=== PATIENT | female | born 1985 | race Caucasian/White ===

== ENCOUNTER 2016-08-02 10:13 | Day surgery (SDC) | payer OTHER ==
[~2016-08-02] VITALS: Ht 172.7 cm; Wt 94.5 kg
[2016-08-02] VITALS (8 sets, daily range): BP systolic 114–137; BP diastolic 67–80; PULSE 58–77; RESP 14–18; O2SAT 95–98
[2016-08-02] MEDS: Lactated Ringer's 1,000 ML IV SCH ×2 (06:19→12:35)
--- NOTE | 2016-08-02 08:18 | PCM.HPANE ---
Patient Data Surgeon Admitting Provider: Attending Provider:Bjorn Bella MD Primary Care Physician:[facility] Other Provider:Felicita Aminingham Anesthesia Reason for Visit Left Distal Radius Fracture Ht/WT & BMI Height (Feet): 5 Height (Inches): 8 Weight (Kilograms): 94.53 Body Mass Index 31.00 Allergies Coded Allergies: No Known Allergies (Verified Allergy, Unknown, 08/01/16) Past Anesthesia History Anesthesia History: Denies:: Abnormal Airway, Anesthesia Reactions, Difficult Intubation, Fam Anesthesia Reaction, Malignant Hyperthermia Diabetes History Hx Diabetes?: No MRSA MRSA: No Medications Hypertension Medication: No Home Meds Incl Beta Hollie: No Reported Medications Hydrocodone-Acetaminophen 5-325 mg 1 Each Tablet1 Tablet PO Q8H PRN For Pain Ref 0 08/01/16 Aluminum Chloride (Drysol)35 Ml Ridcbpqs50 Ml TP HS 08/01/16 Clindamycin Phosphate (Cleocin T)60 Gm Gel..gram.60 Gm TP BID 08/01/16 Buspirone 7.5 Mg Tablet7.5 Mg PO HS Ref 0 MAY TAKE ONE DOSE DURING DAY PRN 08/01/16 Acyclovir 800 Mg Nio803 Mg PO 5XD PRN PRN Ref 0 08/01/16 History History of ENT Problems?: Yes HEENT History: Positive for:: Sinus Problem (HX NASOPHARYNGITIS) Hx of Heart Problems?: Yes Cardiovascular History: Denies:: Congestive Heart Failure Heart Murmur (HX PRE SYNCOPE ECHO 10/2015 EF 55-60%) Hypertension Irregular Heartbeat (C/OF INTERMITTANT PALPITATIONS) Valvular Heart Disease Hx of Respiratory Problem?: No Respiratory History: Denies:: Use of C-PAP Machine Hx Neurologic Problems?: Yes Neurological History: Positive for:: Dizziness (PRE-SYNCOPE 10/2015) Hx of GI Problems?: No Hx of Problems?: No Female Hx: Denies:: Currently (HX TUBAL PG 2007) Pelvic Inflammatory (HX HSV, BARTHOLIN'S CYST ABCESS) Skin History: Positive for:: History Skin Disorders? (ACNE) Denies:: Pressure Ulcers Hx Musculoskeletal Problems?: Yes Musculoskeletal History: Positive for:: Musculoskeletal Trauma (FX LT DISTAL RADIUS=CURRENT PROBLEM) Hx of Psycho/Social Problems?: Yes Psycho Social History: Positive for:: Anxiety Hx Surgeries?: Yes (?TUBAL PG 2007) Hx Any Other Health Problems?: Yes Other History: Denies:: Cancer Endocrine Disease Hospitalization Thyroid Disease History Blood Transfusions: Denies:: Blood Transfusions Hx Diabetes: No Hx Alcohol Use: NoHx Substance Use: No Smoking Status: Never Smoker Have You Smoked inLast 12 mo: No Stop/Bang Treated for Sleep Apnea?: No Do You Have a CPAP Machine?: No S-Snoring: Do You Snore Loudly: No T-Tired: feel tired, fatigued: No O-Obsered: Observed not breath: No P-Blood Pressure: treated: No B- Body Mass Index > 35 kg/m2: No A- Age over 50: No N- Neck Large Circumference: No G- Gender Male: No KATHERINE Total Score: 0 KATHERINE Risk Assessment: Low Risk, <3 Yes Risk Assessment Category Category 1A: Patient has history of documented sleep apnea, and HAS NOT received any narcotic, sedative or anesthesia administration during this stay. Category 1B: Patient has history of documented sleep apnea, and HAS received any narcotic , sedative or anesthesia administration during this stay Category 2: Patient has SUSPECTED Obstructive Sleep Apnea, and HAS received any narcotic , sedative or anesthesia administration during this stay. Category 3: Patient has SUSPECTED Obstructive Sleep Apnea and HAS NOT received narcotic, sedative or anesthesia administration during this stay. Category 4: Outpatient in Procedural Areas with known sleep apnea or who screen positive for High Risk via the STOP/BANG questionnaire. Exam Exam General Appearance: Alert, Oriented X3, Cooperative, No Acute Distress HEENT/AIRWAY: MP 2 Lungs: Clear to Auscultation, Normal Air Movement Heart: Exam Unremarkable, Regular Rate/Rhythm, No Murmurs/Rubs/Gallops Meds/Labs/Diagnostics Admission Meds Current Medications Lactated Ringer's (Lr) 1,000 ml @ 120 mls/hr Q8H20M IV Last administered on t 06:19; Start 08/02/16 at 05:00; Stop 08/02/16 at 13:19 Plan Impression Patient chart reviewed, patient interviewed and anesthestic plan with risks, benefits, and alternatives discussed, and informed consent obtained. ASA Physical Status: ASA1 Normal Healthy Anesthetic Plan: GA Bene/Risks/Altern/Consents: Yes HP Complete Prior to Induction: Yes Kwabena Pina MD Aug 02, 2016 08:18
[~2016-08-02 10:13] MED LIST: ALUM35SO TP; BUSP7.5T5 PO; CLIN60GE TP; CeFAZolin 2 Gm/50 mL D5W IV Premix IV ONE; HYDR-4003 PO; ZOV800 PO
[2016-08-02] MEDS ORDERED: CeFAZolin 2 Gm/50 mL D5W Duplex Bag IV ONE (12:03)
[2016-08-02] MEDS ORDERED: Bupivacaine-MPF 0.5% 30 mL Inj INFILTRATE ONE (12:19)
[2016-08-02] MEDS ORDERED: Ondansetron 2 mg/mL 2 mL Inj IVPUSH PRN (12:50)
[2016-08-02] MEDS ORDERED: Lactated Ringer's 1,000 ML IV SCH (12:50)
[2016-08-02] MEDS ORDERED: Dexamethasone 4 mg/mL Inj IVPUSH PRN (12:50)
[2016-08-02] MEDS ORDERED: EPHEDrine Sulfate 50 mg/mL Inj IVPUSH PRN (12:50)
[2016-08-02] MEDS ORDERED: HYDROmorphone 1 mg/mL Inj IVPUSH PRN (12:50)
[2016-08-02] MEDS ORDERED: fentaNYL-PF 50 mCg/mL 2 mL Inj IVPUSH PRN (12:50)
[2016-08-02] MEDS ORDERED: Phenylephrine 10,000 mCg/mL Inj IVPUSH PRN (12:50)
[2016-08-02] MEDS ORDERED: MetoCLOpramide 5 mg/mL 2 mL Inj IVPUSH PRN (12:50)
[2016-08-02] MEDS ORDERED: Lactated Ringer's 500 ML IV PRN (12:50)
[2016-08-02] MEDS ORDERED: HYDROcodone-APAP 5-325 mg Tablet PO PRN (13:35)
[2016-08-02] MEDS ORDERED: oxyCODONE-Acetamin 5-325 mg Tablet PO PRN (13:35)
[2016-08-02] MEDS ORDERED: HYDROcodone-APAP 7.5-325 mg Tablet PO PRN (13:35)
--- NOTE | 2016-08-02 13:53 | PCM.ORTHOB ---
Immediate Operative Note Date of Service: Aug 02, 2016 Pre Operative Diagnosis Left distal radius fracture Post Operative Diagnosis Same Procedure Left distal radius fracture open reduction and internal fixation Surgeon Surgeon: Bjorn Bella MD Assistants: Delio Bhat PA-C Findings Left distal radius fracture, displaced, comminuted with three-part intra- articular extension satisfactorily reduced and stabilized with a Synthes 2.4 mm variable angle column small left C6 hole distal 3 hole proximal delta plate with 5 x 2.4 mm locking screws distal, 1 x 2.4 mm nonlocking distal cortical screw and 3 proximal 2.7 mm bicortical screws. Mini C-arm intraoperative fluoroscopic views confirmed satisfactory reduction and fixation without any intra-articular or dorsal cortical penetration from our placed hardware. Grafts, Implants: Implants-See Implant Record Complications There were no periprocedural complications identified. Condition Stable Anesthetic Administered: GA Drains: None Catheters: None Output, Estimated Blood Loss: 3 Blood Admin during surgery: No Surgical Cast or Splint: Short Arm Splint Additional Information Tourniquet time 57 minutes Surgical Specimen Removed: No Surgical Specimen sent to Path: No Post Operative Plan The patient will be discharged from daycare surgery when protocol is met. The patient will avoid any weightbearing or strenuous left upper extremity activities for the next 6 weeks postop. Patient will return to the orthopedic office on or after postoperative day #12 for splint removal, suture removal, x- rays of her left wrist and placement into a removable wrist cock-up splint to initiate wrist and hand range of motion exercises. Bjorn Bella MD Aug 02, 2016 13:53
--- NOTE | 2016-08-02 14:00 | PCM.ORTHOP ---
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 She sustained a closed, neurovascularly intact, displaced, comminuted intra-articular left distal radius fracture for which she presents for open reduction and internal fixation today. Findings Left distal radius fracture, displaced, comminuted with three-part intra- articular extension satisfactorily reduced and stabilized with a Synthes 2.4 mm variable angle column small left C6 hole distal 3 hole proximal delta plate with 5 x 2.4 mm locking screws distal, 1 x 2.4 mm nonlocking distal cortical screw and 3 proximal 2.7 mm bicortical screws. Mini C-arm intraoperative fluoroscopic views confirmed satisfactory reduction and fixation without any intra-articular or dorsal cortical penetration from our placed hardware. Details of Procedure The patient was brought to the OR and given a general anesthetic. She is placed in the supine position with her left upper extremity abducted onto a hand table. The tourniquet was placed high about the left arm. The left upper extremity received a trauma scrub and then was prepped and draped in usual sterile fashion. A longitudinal volar radial incision was placed over the distal forearm and wrist and curved gently at the volar radial wrist flexor crease overlying the flexor carpi radialis tendon. We deepened through subcutaneous tissues. The radial nerve and artery were gently retracted radially. The FCR, flexor tendons and median nerve were retracted ulnarward. We deepened our exposure where the flexor pollicis longus and pronator quadratus were elevated in a subperiosteal fashion off the distal volar radius from the metaphyseal diaphyseal junction to the radial styloid. We extended our subperiosteal dissection transversely across the distal radius at the watershed line remaining extra-articular. We cleared the fracture hematoma, soft tissues and periosteum from the fracture site and reduced the comminuted, three-part, intra-articular distal radius fracture. We provisionally applied a Synthes 2.4 mm VA small distal radial locking plate across the fracture site and confirmed placement with mini C-arm fluoroscopy. We then secured the plate to the distal radius with 1 fully threaded 2.4 mm cortical screw distally and 5 x 2.4 mm distal locking screws. The plate was secured proximally with 3 x 2.7 mm bicortical screws. Intraoperative fluoroscopic views confirm satisfactory reduction and fixation of the fracture without any intra-articular or dorsal cortical penetration from our placed hardware. The wound was thoroughly irrigated and closed. We used 3-0 Vicryl for repair of the pronator quadratus and flexor pollicis longus over the volar radial plate. 3-0 Vicryl was used in an interrupted subcutaneous closure and a 3-0 Prolene was used in a subcuticular fashion to close the skin. Steri-Strips were used to augment the skin closure. 20 mL of 0.5% Marcaine was instilled into the wound at the end of the case. The wound was dressed with Xeroform and fluff gauze dressings. Patient was placed into a volar short arm splint. Tourniquet was deflated. The patient was taken back to PACU in stable and satisfactory condition. There were no complications. Patient tolerated the procedure well. Grafts, Implants: Implants-See Implant Record Complications There were no periprocedural complications identified. Condition Stable Anesthetic Administered: GA Drains: None Catheters: None Output, Estimated Blood Loss: 3 Blood Admin during surgery: No Surgical Cast or Splint: Short Arm Splint Addtional Information Tourniquet time 57 minutes Surgical Specimen Removed: No Specimen sent to Pathology: No Post Operative Plan The patient will be discharged from daycare surgery when protocol is met. The patient will avoid any weightbearing or strenuous left upper extremity activities for the next 6 weeks postop. Patient will return to the orthopedic office on or after postoperative day #12 for splint removal, suture removal, x- rays of her left wrist and placement into a removable wrist cock-up splint to initiate wrist and hand range of motion exercises. copies to: [facility]; Bjorn Bella MD, Michael G.E MD Aug 02, 2016 14:00
--- NOTE | 2016-08-02 15:01 | PCM.ANEP2 ---
Post Anesthesia Evaluation ASA/CMS Post Anesthesia VS in Patient's Normal Range?: Yes Resp Stable; Airway Patent?: Yes CV Function & Hydration Stable: Yes Mental Status Recovered?: Yes Pain control Satisfactory?: Yes N/V Control Satisfactory?: Yes Kwabena Pina MD Aug 02, 2016 15:01
--- NOTE | 2016-08-02 15:01 | PCM.ANEP1 ---
Post Anesthesia Phase 1 PACU Phase 1 Assessment Date of Service: Aug 02, 2016 Vital Signs Vital Signs Date Time Temp Pulse Resp B/P Pulse Ox O2 Delivery O2 Flow Rate FiO2 08/02/16 14:10 36.4 60 16 126/70 98 Room Air 08/02/16 14:05 61 16 125/77 98 Room Air 08/02/16 14:00 36.4 59 14 124/80 97 Room Air 08/02/16 13:50 58 15 119/76 95 Room Air 08/02/16 13:45 62 14 119/78 96 Room Air 08/02/16 13:40 77 17 132/74 95 Room Air 08/02/16 13:35 36.6 77 18 137/69 95 Room Air 08/02/16 10:39 36.5 64 16 114/67 97 Room Air Anesthetic Administered: GA Level of Alertness: Sleepy, easy to arouse AYALA's with Equal Strength: Yes Pain: No Nausea or Vomiting: No Oxygen Delivery: Simple Mask Lungs: Clear to Auscultation, Normal Air Movement Dermatome Level: Full Sensation Kwabena Pina MD Aug 02, 2016 15:00
--- NOTE | 2016-08-02 15:05 | DRSVH ---
PROCEDURE: X-RAY LEFT WRIST COMPLETE, MINIMUM THREE VIEWS ([id number]) INDICATIONS: postop TECHNIQUE: 3 views of the wrist were acquired. COMPARISON: [facility], CR, XR WRIST 3VW LT, 07/23/2016, 13:34. FINDINGS: Bones: Stable alignment status post open reduction internal fixation of distal radial metaphyseal fra cture. Fixation plate and associated screws in expected position. On the lateral view, there also i s a linear lucency extending through the distal metadiaphysis of the ulna and fracture cannot be excl uded. Scaphoid view: Requested. Soft tissues: No suspicious soft tissue calcifications. IMPRESSION: 1. Stable bony alignment status post ORIF of distal radial metaphyseal fracture. 2. Linear lucency extending through the distal ulnar metadiaphysis on the lateral view and fracture c annot be excluded. Dictated by: Chaitanya Whitehead [facility] Interpreted: Terri Payne MD on 08/02/2016 at 15:04 Transcribed by: CHASITY on 08/02/2016 at 15:04 Approved by: Terri Payne MD, PhD on 08/02/2016 at 16:58
== END 2016-08-02 23:59 | disposition home or self-care (01) ==
LOC: SAS 10:13
PROVIDERS: ATTEND Orthopaedic Surgery
DX: S52.572A Other intraarticular fracture of lower end of left radius, initial encounter for closed fracture (principal); W00.0XXA Fall on same level due to ice and snow, initial encounter; Y93.21 Activity, ice skating; Y92.89 Other specified places as the place of occurrence of the external cause; Y99.8 Other external cause status; F41.9 Anxiety disorder, unspecified